=== PATIENT | female | born 1935 | race Caucasian/White ===

== ENCOUNTER 2016-09-04 13:11 | Emergency (ER) | payer OTHER ==
[~2016-09-04] VITALS: Ht 160 cm; Wt 90.5 kg
[~2016-09-04 13:11] MED LIST: ALEN70TA30 PO; APIX2.5T PO; ATOR10TA65 PO; HYDR-902 PO; LEVO50TA74 PO; METO50TA16 PO; PRAV20TA63 PO; SOLI5TAB5 PO; VENL150C PO
[2016-09-04] MEDS ORDERED: SOD CHLORIDE 0.9% 500 ML IV STA (13:23)
[2016-09-04 13:29] VITALS: Ht 160 cm; Wt 90.5 kg
--- NOTE | 2016-09-04 14:20 | RADRPT ---
PROCEDURE: CT face without contrast CLINICAL INDICATION: Face injury TECHNIQUE: CT of the face without contrast was performed on a multidetector CT scanner, with multip lanar reformats. One or more of the following dose reduction techniques were used: Automated exposu re control, adjustment in mA and / or kV according to patient size, use of iterative reconstructive technique. CTDIvol = 30 mGy and DLP = 534 mGy-cm. COMPARISON: None available. FINDINGS: There is right periorbital soft tissue swelling with gas consistent with laceration, and swelling ex tending into the right cheek with subcutaneous stranding. There is a mildly depressed fracture of t he right orbital floor involving the infraorbital canal with very small amount of orbital fat hernia ting to the fracture. There is minimal adjacent extraconal stranding and emphysema and small amount of blood in the right maxillary sinus. There is no associated extraocular muscle herniation or retro bulbar hemorrhage in the rest of the orbital structures are intact. The rest of the facial bones are intact. Temporomandibular joints are intact. There is mild-moderate right maxillary sinus mucosal thickening, large left maxillary sinus fluid level, partial bilateral ethmoid air cell opacificatio n and minimal right sphenoid sinus mucosal thickening. IMPRESSION: 1. Right periorbital - facial soft tissue injury, with mildly depressed right orbital floor fractur e, associated small amount of orbital fat herniation and minimal orbital emphysema. No extraocular muscle herniation or retrobulbar hematoma. 2. Paranasal sinus disease described above. RPTAT: VV .Lewis Walker MD, Date Time Electronically viewed and signed by .Lewis Walker MD, on 09/04/2016 14:19 .O/
--- NOTE | 2016-09-04 14:23 | RADRPT ---
PROCEDURE: CT brain without contrast CLINICAL INDICATION: Fall, syncope TECHNIQUE: CT of the brain without contrast performed on a multidetector CT scanner, with multiplan ar reformats. One or more of the following dose reduction techniques were used: Automated exposure control, adjustment in mA and / or kV according to patient size, use of iterative reconstructive dallin hnique. CTDIvol = 44 mGy; DLP = 793 mGy-cm. COMPARISON: None available FINDINGS: No acute intracranial hemorrhage is identified. No extra-axial fluid collection is seen. There is no mass effect. No midline shift is identified. Ventricles and sulci are mild to moderately enlarged compatible with volume loss. There are mild areas of hypodensity in the periventricular - deep white matter which are nonspecific but suggestive of chronic small vessel ischemic changes. Burnham-white differentiation is preserved. Atherosclerotic calcifications of the intracranial internal carotid arteries are noted. Calvarium and skull base are intact. There is right periorbital soft tissue swelling with gas - lac eration and right cheek soft tissue swelling with a mildly depressed right orbital floor fracture. There is blood mucosal thickening in the right maxillary sinus, left maxillary sinus air fluid level , partial bilateral ethmoid air cell opacification and minimal right sphenoid sinus mucosal thickeni ng. IMPRESSION: 1. No evidence of acute intracranial pathology. 2. Mild to moderate volume loss, with mild chronic small vessel ischemic changes. 3. Right periorbital - facial soft tissue injury with mildly depressed right orbital floor fracture . See separate facial CT report for additional details. RPTAT: VV .Lewis Walker MD, Date Time Electronically viewed and signed by .Lewis Walker MD, on 09/04/2016 14:22 .O/
--- NOTE | 2016-09-04 14:28 | RADRPT ---
PROCEDURE: XR Chest. CLINICAL INDICATION: Shortness of breath. Syncope. TECHNIQUE: Single frontal view. COMPARISON: 08/21/2011. FINDINGS: There is mild right basilar atelectasis or pneumonia. The lungs are otherwise clear. The heart is mildly enlarged. There is calcification in the aorta consistent with atherosclerosis. There is no pleural effusion or pneumothorax. There is an old healed fracture of the distal right clavicle. There is chronic deformity of both sh oulders. There is thoracic scoliosis convex right. IMPRESSION: 1. Mild right basilar atelectasis or pneumonia. 2. Mild cardiomegaly and atherosclerosis. 3. Chronic bone abnormalities as described above. RPTAT: QQ .Will Kincaid MD, MD Date Time Electronically viewed and signed by .Will Kincaid MD, on 09/04/2016 14:27 .R/
--- NOTE | 2016-09-04 14:33 | RADRPT ---
PROCEDURE: CT cervical spine without contrast. CLINICAL INDICATION: Fall, neck pain TECHNIQUE: CT of the cervical spine without contrast was performed on a multidetector CT scanner, w ith multiplanar reformats. One or more of the following dose reduction techniques were used: Automa conor exposure control, adjustment in mA and / or kV according to patient size, use of iterative recon structive technique. CTDIvol = 22 mGy and DLP = 453 mGy-cm. COMPARISON: None available. FINDINGS: No fracture or dislocation is identified. There is gross preservation of the lordosis of the cervic al spine. There is trace anterolisthesis of C7-T1. The vertebral bodies are maintained in height. There is generalized osteopenia. There are degenerative changes at the craniocervical junction an d multilevel anterior spondylosis. Additional findings by levels: C2-3: Moderate disk space narrowing. Posterior disk/osteophyte and ligamentum flavum hypertrophy wi th moderate central canal stenosis. Uncovertebral osteophytes and facet arthropathy with mild-moder ate left foraminal narrowing. C3-4: Moderate to severe disk space narrowing. Posterior disk osteophyte ligamentum flavum hypertro phy with moderate central canal stenosis. Uncovertebral osteophytes and facet arthropathy with mode rate to severe bilateral foraminal narrowing. C4-5: Moderate to severe disk space narrowing. Posterior disk/osteophyte with moderate to severe ce ntral canal stenosis. Uncovertebral osteophytes and facet arthropathy with moderate to severe right , moderate left foraminal narrowing. C5-6: Moderate to severe disk space narrowing. Posterior disk/osteophyte with moderate to severe ce ntral canal stenosis. Uncovertebral osteophytes and facet arthropathy with moderate to severe bilat eral foraminal narrowing. C6-7: Mild disk space narrowing. Mild posterior disk osteophyte without central canal stenosis sharee ntified. Uncovertebral osteophytes and facet arthropathy with mild bilateral foraminal narrowing. C7-T1: Mild to moderate disk space narrowing. Posterior disk osteophyte without central canal steno sis identified. Facet arthropathy without foraminal narrowing. IMPRESSION: 1. No fracture or dislocation. 2. Cervical spondylosis with moderate to severe central stenosis at C4-5 and C5-6, moderate central stenosis at C2-3 and C3-4. Multilevel foraminal narrowing outlined in detail above. 3. Osteopenia. RPTAT: VV .Lewis Walker MD, MD Date Time Electronically viewed and signed by .Lewis Walker MD, on 09/04/2016 14:33 .O/
[2016-09-04 14:47] LABS: BASOPHILS % 0.2 % (0.0-2.0); EOSINOPHILS # 0.1 10^3/ul (0.0-0.5); EOSINOPHILS % 0.3 % (0.0-7.0); HEMATOCRIT 36.5 % (37.0-47.0); HEMOGLOBIN 12.2 g/dl (12.0-16.0); LYMPHOCYTES # 0.7 10^3/ul (0.8-2.9); MEAN CORPUSCULAR HEMOGLOBIN 28.7 pg (29.0-33.0); MEAN CORPUSCULAR HGB CONC 33.3 g/dl (32.0-37.0); MEAN CORPUSCULAR VOLUME 86.3 fl (82.0-101.0); MEAN PLATELET VOLUME 9.9 fl (7.4-10.4); MONOCYTE # 0.7 10^3/ul (0.3-0.9); MONOCYTES % 4.2 % (0.0-11.0); NEUTROPHIL # 15.3 10^3/ul (1.6-7.5); NEUTROPHILS % 91.3 % (39.0-77.0); PLATELET COUNT 353 10^3/UL (140-440); RED BLOOD COUNT 4.24 10^6/ul (4.20-5.40); RED CELL DISTRIBUTION WIDTH 14.4 % (11.5-14.5); UNCORRECTED WBC 16.7 10^3/ul (4.8-10.8); WHITE BLOOD COUNT 16.7 10^3/ul (4.8-10.8)
[2016-09-04 14:49] LABS: CONDITION 1; LH ANALYZER COMMENTS 1
[2016-09-04 14:52] LABS: CHLORIDE 98 mmol/L (97-110); INR 1.24; PROTIME 15.7 Sec (12.2-14.2); PT RATIO 1.2; SODIUM 138 mmol/L (135-144)
[2016-09-04 14:55] LABS: ANION GAP 16 (8-16); CARBON DIOXIDE 28 mmol/L (21-31); CREATININE 0.81 mg/dl (0.44-1.00)
[2016-09-04 14:56] LABS: BLOOD UREA NITROGEN 19 mg/dl (7-20); CALCIUM 8.8 mg/dl (8.4-10.2); GLUCOSE 193 mg/dl (70-220)
[2016-09-04] MEDS ORDERED: FLUORESCEIN STRIP RIGHT EYE ONE (15:00)
[2016-09-04] MEDS ORDERED: PROPARACAINE 0.5% 15 ML OPH RIGHT EYE ONE (15:00)
[2016-09-04] MEDS ORDERED: CEFTRIAXONE 1 GM/50 ML (PMX) 50 ML IVPB ONE (15:00)
[2016-09-04] MEDS ORDERED: morphine 2 MG INJ IV ONE (15:00)
[2016-09-04 15:14] LABS: TROPONIN-I < 0.012 ng/ml (0.00-0.12)
[2016-09-04] MEDS ORDERED: AZITHROMYCIN 500MG/NS (PMX) 250 ML IVPB ONE (15:30)
--- NOTE | 2016-09-04 15:47 | RADRPT ---
PROCEDURE: XR Wrist. CLINICAL INDICATION: Trauma, pain TECHNIQUE: AP, lateral and oblique views of the right wrist were performed. COMPARISON: No prior studies are available for comparison. FINDINGS: No acute fracture or dislocation is identified. Mild degenerative osteoarthrosis is seen at the fir st carpal-metacarpal joint. There is no radiodense foreign body. Mild osteopenia is noted. IMPRESSION: 1. No evidence of acute fracture or dislocation. 2. Mild osteopenia. 3. Mild degenerative osteoarthrosis at the first carpal-metacarpal joint. RPTAT: EE .Loki Ryan MD, Date Time Electronically viewed and signed by .Loki Ryan MD, on 09/04/2016 15:47 .R/
--- NOTE | 2016-09-04 15:52 | RADRPT ---
PROCEDURE: XR Shoulder. CLINICAL INDICATION: Trauma, pain TECHNIQUE: 3 views of the left shoulder are available for review. COMPARISON: None available FINDINGS: There is marked osteopenia. Severe left shoulder joint space narrowing and osteophyte formation is seen. No definite evidence of acute fracture is identified, though marked osteopenia limits evaluat ion. There is no shoulder dislocation. No radiodense foreign body is identified. IMPRESSION: 1. Severe osteopenia and severe left shoulder osteoarthrosis are noted. 2. No gross evidence of acute fracture is identified, though severe osteopenia and shoulder osteoar throsis limits evaluation. If there remains high clinical suspicion for acute fracture, consider CT for further evaluation. 3. No shoulder dislocation is identified. RPTAT: EE .Loki Ryan MD, Date Time Electronically viewed and signed by .Loki Ryan MD, on 09/04/2016 15:52 .R/
--- NOTE | 2016-09-04 15:56 | RADRPT ---
PROCEDURE: XR Hand. CLINICAL INDICATION: Trauma, pain TECHNIQUE: Three views of the right hand were obtained. COMPARISON: No prior studies are available for comparison. FINDINGS: No acute fracture or dislocation is identified. Mild degenerative osteoarthrosis is seen at the fir st carpal-metacarpal joint, and also at the second and third DIP joints. There is no radiodense for eign body. Mild osteopenia is noted. IMPRESSION: 1. No evidence of acute fracture or dislocation. 2. Mild osteopenia. 3. Mild degenerative osteoarthrosis at the first carpal-metacarpal joint and second and third DIP j oints. RPTAT: EE .Loki Ryan MD, Date Time Electronically viewed and signed by .Loki Ryan MD, on 09/04/2016 15:55 .R/
--- NOTE | 2016-09-04 15:57 | RADRPT ---
PROCEDURE: XR Pelvis. CLINICAL INDICATION: Trauma, pain TECHNIQUE: Single AP view of the pelvis. COMPARISON: 05/22/2016 FINDINGS: The patient is again noted to be status post right femoral ORIF. Bilateral hip joint space narrowin g and osteophyte formation are noted, greater on the left. There is no acute fracture or dislocatio n. No radiodense foreign body is identified. There is degenerative spondylosis of the lower lumbar spine. IMPRESSION: 1. No evidence of acute fracture or dislocation. 2. The patient is status post right femoral ORIF. 3. Bilateral hip joint osteoarthrosis is noted, greater on the left. RPTAT: EE .Loki Ryan MD, MD Date Time Electronically viewed and signed by .Loki Ryan MD, on 09/04/2016 15:57 .R/
[2016-09-04] MEDS ORDERED: LIDOCAINE 1%/EPI (MDV) 20 ML INJ INFIL ONE (16:30)
[2016-09-04] MEDS ORDERED: LIDOCAINE 1% (MDV) 20 ML INJ ONE (16:39)
--- NOTE | 2016-09-04 17:35 | ERD ---
ER Documentation Chief Complaint Date/Time DATE: 09/04/16 TIME: 17:12 Chief Complaint Sustained fall at longterm, witness, slipped on feces. Multiple injs HPI 81-year-old female with a history of hypertension and hypothyroidism sent from her assisted living facility after she had a syncopal event. The patient does not recall everything that happened. She states that she was going to the bathroom and the next thing she knows she woke up and there were people standing over her. She has been feeling dizzy and generally weak lately. She has had a cough for over 1 week with greenish sputum. She denies any fevers, chills, abdominal pain, chest pain, shortness of breath, nausea or vomiting. No hematochezia or melena. After the fall she complains of facial pain, left shoulder pain, right hand pain. She denies any current dizziness, chest pain, abdominal pain ROS All systems reviewed and are negative except as per history of present illness. Medications Home Meds Active Scripts Hydrocodone/Acetaminophen (Debord 10-325 Tablet) 1 Each Tablet, 1 TAB PO Q6H Y for PAIN, #20 TAB Prov:MIGNON WIGGINSAaliyah 05/22/16 Reported Medications Apixaban* (Eliquis*) 2.5 Mg Tablet, 2.5 MG PO BID, TAB 05/22/16 Atorvastatin Calcium (Atorvastatin Calcium) 10 Mg Tablet, 10 MG PO QHS, #30 TAB 05/22/16 Alendronate Sodium* (Fosamax*) 70 Mg Tablet, 70 MG PO Q7D, TAB 06/04/14 Pravastatin Sodium* (Pravastatin Sodium*) 20 Mg Tablet, 20 MG PO HS, TAB 06/04/14 Metoprolol Succinate* (Toprol XL*) 50 Mg Tab.er.24h, 50 MG PO DAILY, TAB 06/04/14 Venlafaxine Hcl* (Effexor XR*) 150 Mg Cap.sr.24h, 150 MG PO DAILY, CAP 06/04/14 Levothyroxine Sodium* (Levothyroxine Sodium*) 50 Mcg Tablet, 50 MCG PO AC BREAKFAST, TAB 06/04/14 Solifenacin* (Vesicare*) 5 Mg Tablet, 5 MG PO DAILY, TAB 06/04/14 Allergies Allergies: Coded Allergies: No Known Allergy (Verified , 09/04/16) PMhx/Soc History of Surgery: Yes (L Ankle Surg,R ORIF) Anesthesia Reaction: No Hx Neurological Disorder: No Hx Respiratory Disorders: No Hx Cardiac Disorders: Yes (HTN) Hx Psychiatric Problems: Yes (Depression) Hx Miscellaneous Medical Probl: Yes (OA,Osteoporosis,Hypothyroidism, Dyslipidemia,Overreactive Bladder) Hx Alcohol Use: No Hx Substance Use: No Hx Tobacco Use: No Smoking Status: Never smoker FmHx Family History: No diabetes Physical Exam Vitals Vital Signs Date Time Temp Pulse Resp B/P Pulse Ox O2 Delivery O2 Flow Rate FiO2 09/04/16 17:10 103 22 122/64 96 Room Air 09/04/16 15:18 80 20 141/56 98 Room Air 09/04/16 13:29 98.4 86 25 124/61 95 Physical Exam Const: Well-appearing, no distress, nontoxic Head: Atraumatic Eyes: Right conjunctiva with mild injection, right periorbital swelling and ecchymosis. Pupils equal and reactive bilaterally, extraocular muscles intact. No proptosis. ENT: Normal External Ears, Nose and Mouth. Neck: Full range of motion. No C-spine tenderness. No meningismus. Resp: Mild crackles in the right base, no wheezing Cardio: Regular rate and rhythm, no murmurs Abd: Soft, non tender, non distended. Normal bowel sounds Skin: Superficial abrasions of bilateral knees, right hand with laceration extending from the internal aspect of her arm all the way to the webspace involving subcutaneous tissues, no tendon injury, no significant bleeding. Multiple skin avulsions to the dorsum of the right hand. Mild swelling. Tenderness to palpation over her second metacarpal distally. No snuffbox tenderness. Full range of motion of the wrist without any tenderness to palpation or deformity. Full range of motion of all fingers, tendons intact. 2 + radial pulses bilaterally. Sensation is intact distally. Cap refill less than 2 seconds Back: No midline or flank tenderness Ext: No cyanosis, or edema Neur: Awake and alert and oriented 3, cranial nerves intact, motor and sensory intact in all 4 extremities Psych: Normal Mood and Affect Result Diagram: 09/04/16 1425 09/04/16 1425 Results 24 hrs Laboratory Tests Test 09/04/16 14:25 Activated Partial Thromboplast Time 30.0Sec Anion Gap 16 Basophils # 0.010^3/ul Basophils % 0.2% Blood Morphology Comment Blood Urea Nitrogen 19mg/dl Calcium Level 8.8mg/dl Carbon Dioxide Level 28mmol/L Chloride Level 98mmol/L Creatinine 0.81mg/dl Eosinophils # 0.110^3/ul Eosinophils % 0.3% Glucose Level 193mg/dl Hematocrit 36.5% Hemoglobin 12.2g/dl INR International Normalized Ratio 1.24 Lymphocytes # 0.710^3/ul Lymphocytes % 4.0% Mean Corpuscular Hemoglobin 28.7pg Mean Corpuscular Hemoglobin Concent 33.3g/dl Mean Corpuscular Volume 86.3fl Mean Platelet Volume 9.9fl Monocytes # 0.710^3/ul Monocytes % 4.2% Neutrophils # 15.310^3/ul Neutrophils % 91.3% Nucleated Red Blood Cells # 0.010^3/ul Nucleated Red Blood Cells % 0.0/100WBC Platelet Count 33353^3/UL Potassium Level 4.0mmol/L Prothrombin Time 15.7Sec Prothrombin Time Ratio 1.2 Red Blood Count 4.2410^6/ul Red Cell Distribution Width 14.4% Sodium Level 138mmol/L Troponin I < 0.012ng/ml White Blood Count 16.710^3/ul Current Medications Medications (Trade) Dose Ordered Sig/Neto Route PRN Reason Start Time Stop Time Status Last Admin Dose Admin Sodium Chloride (NS) 500 ml @ 500 mls/hr Q1H STAT IV 09/04/16 13:23 09/04/16 14:22 DC 09/04/16 14:31 Morphine Sulfate (morphine) 4 mg ONCE ONCE IV 09/04/16 15:00 09/04/16 15:01 DC 09/04/16 15:17 Proparacaine HCl (Alcaine 0.5%) 1 drop ONCE ONCE RIGHT EYE 09/04/16 15:00 09/04/16 15:01 DC Fluorescein Sodium 1 strip 1 strip ONCE ONCE RIGHT EYE 09/04/16 15:00 09/04/16 15:01 DC Ceftriaxone Sodium 50 ml @ 100 mls/hr ONCE ONCE IVPB 09/04/16 15:00 09/04/16 15:29 DC 09/04/16 16:22 Azithromycin (Zithromax 500mg/ NS (Pmx)) 250 ml @ 250 mls/hr ONCE ONCE IVPB 09/04/16 15:30 09/04/16 16:29 DC 09/04/16 17:06 Lidocaine/ Epinephrine (Xylocaine 1%/ Epi (Mdv) 20 ml) 20 ml ONCE ONCE INFIL 09/04/16 16:30 09/04/16 16:31 DC Lidocaine (Xylocaine 1% (Mdv) 20 ml) 20 ml STK-MED ONCE .ROUTE 09/04/16 16:39 09/04/16 16:40 DC Procedures/MDM EKG: Rate/Rhythm: Sinus rhythm with PACs QRS, ST, T-waves: Incomplete right bundle branch block, left anterior fascicular block Impression: No evidence of ischemia or arrhythmia Laceration Repair by me: Anesthesia: 1% lidocaine locally Location: Right hand Tendon/Joint/Nerves: No injury Foreign body: None detected after copious irrigation and exploration Technique: Simple Interrupted Sutures Complexity: No subcutaneous sutures/mucosal repair/edge excision Post Closure Length: 6 cm Patient's bleeding was easily controlled in the department and there is no indication of anemia. No evidence of compartment syndrome, neurologic injury, vascular injury, open joint, tendon laceration, or foreign body. Patient is appropriate for outpatient follow up. Patient is presenting after a syncopal event with complaints of cold symptoms for about 2 weeks. Her vitals are all within normal limits and she is afebrile. However given her symptoms of cough and sputum for over 1 week, it is possible that she has a syncopal event secondary to pulmonary infection. CT head was normal, CT face showed evidence of right orbital floor fracture without evidence of entrapment. Chest x-ray shows evidence of right lower lobe infiltrate, likely pneumonia. X-rays of her left shoulder, right hand, right wrist did not show evidence of acute fracture or dislocation per radiology. Her right hand laceration was irrigated and repaired. There is no evidence of tendon injury. She is neurovascularly intact. Patient's syncopal symptoms are unstable at this time and require inpatient workup and monitoring. No evidence of PE, stroke, or dissection at this time but occult ischemia or fatal dysrhythmia cannot be ruled out. IV fluids and IV antibiotics were started for prophylactic coverage of her orbital floor fracture and for her pneumonia. Patient remained stable while in the ED. I spoke with [facility], and they will transfer the patient to a telemetry bed. The patient was stable upon transfer. Departure Diagnosis: Primary Impression: Fall with significant injury Encounter type: initial encounter Qualified Code: W19.XXXA - Fall with significant injury, initial encounter Additional Impressions: Syncope and collapse Fracture of right orbital floor Encounter type: initial encounter Fracture type: closed Qualified Code: S02.31XA - Closed fracture of right orbital floor, initial encounter Community acquired pneumonia Laceration of right hand Encounter type: initial encounter Qualified Code: S61.411A - Laceration of right hand, initial encounter Pain of left shoulder joint on movement Right hand pain Blunt head trauma Encounter type: initial encounter Qualified Code: S09.8XXA - Blunt head trauma, initial encounter Condition: Fair KAILEE PERERA MD Sep 04, 2016 17:23
[2016-09-04 17:40] VITALS: BP 122/66; PULSE 97; RESP 17; TEMP 98.6
== END 2016-09-04 18:00 | disposition short-term general hospital (02) ==
LOC: E/R 13:11
DX: R55 Syncope and collapse (principal); S02.31XA Fracture of orbital floor, right side, initial encounter for closed fracture; J18.9 Pneumonia, unspecified organism; S61.411A Laceration without foreign body of right hand, initial encounter; S49.92XA Unspecified injury of left shoulder and upper arm, initial encounter; S69.91XA Unspecified injury of right wrist, hand and finger(s), initial encounter; S09.8XXA Other specified injuries of head, initial encounter; I10 Essential (primary) hypertension; E03.9 Hypothyroidism, unspecified; W01.0XXA Fall on same level from slipping, tripping and stumbling without subsequent striking against object, initial encounter; Y92.121 Bathroom in nursing home as the place of occurrence of the external cause; Z79.01 Long term (current) use of anticoagulants
CPT/HCPCS: 12002; 36415; 70450; 70486; 71010; 72125; 72170; 73030; 73110; 73130; 80048; 84484; 85025; 85610; 85730; 87040; 93005; 96374; 96375; 99285; J0456; J0696; J2270; J7040